=== PATIENT | female | born 1990 | race Hispanic/Latino ===

== ENCOUNTER 2024-09-24 07:25 | Emergency (ER) | payer SELFPAY ==
--- NOTE | 2024-09-24 07:53 | ER ---
Nurse's Notes [facility] Name: Guera Crooks Age: 33 yrs Sex: Female : 1990 Arrival Date: 09/24/2024 Time: 07:25 Bed 4 Private MD: Diagnosis: Uvulitis Presentation: 09/24 07:44 Chief complaint: Patient states: "I feel like there is something stuck in my throat". aa5 Clear strong voice noted, denies pain to throat. 07:44 Coronavirus screen: At this time, the client does not indicate any symptoms associated aa5 with coronavirus-19. Ebola Screen: Patient denies travel to an Ebola-affected area in the 21 days before illness onset. Initial Sepsis Screen: Does the patient meet any 2 criteria? No. Patient's initial sepsis screen is negative. Does the patient have a suspected source of infection? No. Patient's initial sepsis screen is negative. Risk Assessment: Do you want to hurt yourself or someone else? Patient reports no desire to harm self or others. Onset of symptoms was September 24, 2024 at 07:00. 07:44 Acuity: JULIETH 3 aa5 07:44 Method Of Arrival: Ambulatory aa5 Historical: - Allergies: 07:44 No Known Allergies; aa5 - PMHx: 07:44 None; aa5 - PSHx: 07:44 None; aa5 - Immunization history:: Adult Immunizations unknown. - Infectious Disease History:: Denies. - Social history:: Smoking status: Patient denies any tobacco usage or history of. - Family history:: not pertinent. Screenin:54 [facility] ED Fall Risk Assessment (Adult) History of falling in the last 3 months, ko1 including since admission No falls in past 3 months (0 pts) Confusion or Disorientation No (0 pts) Intoxicated or Sedated No (0 pts) Impaired Gait No (0 pts) Mobility Assist Device Used No (0 pt) Altered Elimination No (0 pt) Score/Fall Risk Level 0 - 2 = Low Risk Oriented to surroundings, Maintained a safe environment, Educated pt \\T\\ family on fall prevention, incl call for assistance when getting out of bed, Assessed \\T\\ reinforced patient's understanding of fall precautions, Hourly rounding (assess needs \\T\\ fall precautionary measures) done. Abuse screen: Denies threats or abuse. Denies injuries from another. Nutritional screening: No deficits noted. Tuberculosis screening: No symptoms or risk factors identified. Assessment: 07:44 General: Appears comfortable, Behavior is calm, cooperative. Pain: Denies pain. Neuro: aa5 Level of Consciousness is awake, alert, obeys commands, Oriented to person, place, time, situation. Cardiovascular: Patient's skin is warm and dry. Respiratory: Airway is patent Respiratory effort is even, unlabored, Respiratory pattern is regular, symmetrical. GI: No signs and/or symptoms were reported involving the gastrointestinal system. : No signs and/or symptoms were reported regarding the genitourinary system. EENT: Throat swelling to uvula noted . Derm: Skin is pink, warm \\T\\ dry. Musculoskeletal: Range of motion: intact in all extremities. 08:10 Reassessment: Patient is alert, oriented x 3, equal unlabored respirations, skin aa5 warm/dry/pink. Vital Signs: 07:44 BP 156 / 104; Pulse 107; Resp 18 S; Temp 97.5(TE); Pulse Ox 100% on R/A; Height 5 ft. 1 aa5 in. (R); 07:55 BP 135 / 88; Pulse 84; Resp 15; Pulse Ox 98% ; ko1 ED Course: 07:29 Patient arrived in ED. mg5 07:32 Diallo Coelho MD is Attending Physician. rt 07:44 Ioana Neville, RN is Primary Nurse. aa5 07:44 Arm band placed on. aa5 07:47 Triage completed. aa5 07:54 Patient has correct armband on for positive identification. Bed in low position. Call ko1 light in reach. Provided Education on: meds. Pulse ox on. NIBP on. Door closed. Noise minimized. Lights dimmed. 07:54 No provider procedures requiring assistance completed. Patient did not have IV access ko1 during this emergency room visit. Administered Medications: 08:02 Drug: Dexamethasone IM 10 mg IM once Route: IM; Site: right gluteus; aa5 08:10 Follow up: Response: No adverse reaction aa5 08:02 Drug: Amoxicillin-Clavulanate PO 875 mg PO once Route: PO; aa5 08:10 Follow up: Response: No adverse reaction aa5 Medication: 07:55 VIS not applicable for this client. ko1 Outcome: 07:53 Discharge ordered by . rt 08:10 Discharged to home ambulatory, aa5 08:10 Condition: stable 08:10 Discharge instructions given to patient, Instructed on discharge instructions, follow up and referral plans. medication usage, Demonstrated understanding of instructions, follow-up care, medications, Prescriptions given X 1, 08:11 Patient left the ED. aa5 Signatures: Ioana Neville RN RN aa5 Nataliia Ferrell RN RN ko1 Diallo Coelho MD MD rt Bea Torres mg5
--- NOTE | 2024-09-24 07:53 | EDPHYS ---
Physician Documentation [facility] Name: Guera Crooks Age: 33 yrs Sex: Female : 1990 Arrival Date: 09/24/2024 Time: 07:25 Bed 4 Private MD: ED Physician Diallo Coelho HPI: 09/24 09:10 This 33 yrs old Female presents to ER via Ambulatory with complaints of rt Something Stuck In Throat. 09:10 Patient presents to the ED stating that she believes that her uvula is swollen, rt irritated. States that she did not have any piece of food stuck in her esophagus, denies difficulty swallowing. Denies of acute complaints at this time, symptoms are mild in severity, no other aggravating alleviating factors.. Historical: - Allergies: :44 No Known Allergies; aa5 - PMHx: :44 None; aa5 - PSHx: 07:44 None; aa5 - Immunization history:: Adult Immunizations unknown. - Infectious Disease History:: Denies. - Social history:: Smoking status: Patient denies any tobacco usage or history of. - Family history:: not pertinent. ROS: 09:10 Constitutional: Negative for fever, chills, and weight loss, Cardiovascular: Negative rt for chest pain, palpitations, and edema, Respiratory: Negative for shortness of breath, cough, wheezing, and pleuritic chest pain, Abdomen/GI: Negative for abdominal pain, nausea, vomiting, diarrhea, and constipation, MS/Extremity: Negative for injury and deformity, Skin: Negative for injury, rash, and discoloration, 09:10 ENT: Positive for sore throat, Negative for rhinorrhea, Exam: 09:10 Constitutional: This is a well developed, well nourished patient who is awake, alert, rt and in no acute distress. Head/Face: Normocephalic, atraumatic. Chest/axilla: Normal chest wall appearance and motion. Nontender with no deformity. No lesions are appreciated. Cardiovascular: Regular rate and rhythm with a normal S1 and S2. No gallops, murmurs, or rubs. Normal PMI, no JVD. No pulse deficits. Respiratory: Lungs have equal breath sounds bilaterally, clear to auscultation and percussion. No rales, rhonchi or wheezes noted. No increased work of breathing, no retractions or nasal flaring. Abdomen/GI: Soft, non-tender, with normal bowel sounds. No distension or tympany. No guarding or rebound. No evidence of tenderness throughout. 09:10 ENT: Mild swelling, erythema noted to the uvula, it is midline, no tonsillar hypertrophy, no stridor. Vital Signs: 07:44 BP 156 / 104; Pulse 107; Resp 18 S; Temp 97.5(TE); Pulse Ox 100% on R/A; Height 5 ft. 1 aa5 in. (R); 07:55 BP 135 / 88; Pulse 84; Resp 15; Pulse Ox 98% ; ko1 MDM: 07:45 Medical Screening Exam initiated rt 09:10 Differential Diagnosis Uvulitis, pharyngitis. Data reviewed: vital signs, nurses notes. rt Test considered but Not performed: Other Details Will treat empirically, strep swabs are not needed. No signs for RPA, [employer], CT scans not indicated. Counseling: I had a detailed discussion with the patient and/or guardian regarding the historical points, exam findings, and any diagnostic results supporting the discharge/admit diagnosis, the need for outpatient follow up, to return to the emergency department if symptoms worsen or persist or if there are any questions or concerns that arise at home. Administered Medications: 08:02 Drug: Dexamethasone IM 10 mg IM once Route: IM; Site: right gluteus; aa5 08:10 Follow up: Response: No adverse reaction aa5 08:02 Drug: Amoxicillin-Clavulanate PO 875 mg PO once Route: PO; aa5 08:10 Follow up: Response: No adverse reaction aa5 Disposition Summary: 09/24/24 07:53 Discharge Ordered Notes: Location: Home rt Problem: new rt Symptoms: are unchanged rt Condition: Stable rt Diagnosis - Uvulitis rt Followup: rt - With: Private Physician - When: 2 - 3 days - Reason: Discharge Instructions: - Discharge Summary Sheet rt - Uvulitis rt Forms: - Work release form hb - Medication Reconciliation Form rt - Antibiotic Education rt - Prescription Opioid Use rt - Patient Portal Instructions rt - Leadership Thank You Letter rt Prescriptions: - Augmentin 875-125 mg Oral Tablet - take 1 tablet ORAL route every 12 hours for 10 days; 20 tablet; Refills: 0, rt Product Selection Permitted Signatures: Ioana Neville, RN RN aa5 Diallo Coelho, MD rt
[2024-09-24] MEDS ORDERED: AMOX/K CLAV 875 MG TAB ONE (07:58)
[2024-09-24] MEDS ORDERED: dexAMETHasone 10 MG/ML VIAL ONE (07:58)
[2024-09-24 08:18] VITALS: TEMP 97.5
[2024-09-24 08:19] VITALS: BP 135/88; O2SAT 98
== END 2024-09-24 08:11 | disposition home or self-care (01) ==
LOC: ER 07:25
DX: K12.2 Cellulitis and abscess of mouth (principal)
CPT/HCPCS: 96372; 99284; J1100

== ENCOUNTER 2025-02-12 13:27 | Emergency (ER) | payer SELFPAY ==
--- OUTSIDE RECORDS SUMMARY | 2025-02-12 13:32 | XMS REPORT | Continuity of Care Document ---
Author Name Unknown Address [address] [facility] [address] [place] [address] [facility] Address [address] [facility] [address] [place] [address] Care Team Providers Care Manager Market Intelligence Name Role Phone Adalberto Davila II Attending Clinician Unavailab Jayla Gilman Attending Clinician Unavailable Jayla Stubbs Attending Clinician Unavailable Physician, No Primary or Family Admitting Clinic kim Unavailable Payers Payer Name Policy Type Policy Number Effective Date Expirati on Date Source Allergies, Adverse Reactions, Alerts Allergy Name Allergy Type Status Severity Reaction(s) Onset Date Inactive Date Treating Clinician Comments Source No Known Allergie s DA Active U 06-05 00:00: 00 [facility] are [facility] Encounters Start Date/Time End Date/Time Encounter Type Admission Type Attending Clinicians Care Facility Care Department Encounter ID Source 2023-06-05 19:40:00 2023-06-06 00:40:00 Emergency EM Adalberto Davila II HCANW [place] [id number] [facility] are [facility] 2018-05-04 14:24:00 2018-05-04 23:59:00 Outpatient 3 Jayla Stubbs [facility] ULT [id number] Health system Results Test Description Test Time Test Comments Results Resul t Comments Source - US PREG 1ST TRIMTR 2023-06-09 06:39:00 [facility] 1990 Sex: F *Patient Name: LIZETH TENA Unit No: [id number] EXAMS: CPT: [id number] US PREG 1ST TRIMTR 21815 Obstetrical sonogram, 06/05/2023. Clinical: Vaginal bleeding. Comment: Transabdominal and endovaginal examinations were performed. The uterus measures 12.3 x 5.9 x 7.3 cm. The endometrium measures 1.1 cm. No IUP is identified. There are nabothian cysts. The right ovary measures 4.2 x 3.4 x 3.7 cm. The left ovary measures 2.3 x 1.4 x 2.3 cm. No adnexal masses are present. There is no evidence of ovarian torsion. IMPRESSION: No IUP identified. at 0639 Reported and signed by: Av Rush MD CC: Adalberto Davila II, Jr, MD Technologist: VERN Valles Probe: Trscr Dt/Tm: 06/09/2023 (0639) by:[email or web address] Orig Print D/T: S: 06/09/2023 (0643) BATCH NO: N/A Name: LIZETH TENA [facility] Phys: MALED. - Adalberto Davila II [facility] 1990 Age: 32 Sex: F [place], [place] [address] Loc: N.ERS Exam Date: 06/05/2023 Status: DEP ER PH: FAX: PAGE 1 Signed Report - US PREG UT TRANSVAGINAL 2023-06-09 06:39:00 [facility] : 1990 Sex: F *Patient Name: LIZETH TENA Unit No: [id number] EXAMS: CPT: [id number] US PREG UT TRANSVAGINAL 39515 Obstetrical sonogram, 06/05/2023. Clinical: Vaginal bleeding. Comment: Transabdominal and endovaginal examinations were performed. The uterus measures 12.3 x 5.9 x 7.3 cm. The endometrium measures 1.1 cm. No IUP is identified. There are nabothian cysts. The right ovary measures 4.2 x 3.4 x 3.7 cm. The left ovary measures 2.3 x 1.4 x 2.3 cm. No adnexal masses are present. There is no evidence of ovarian torsion. IMPRESSION: No IUP identified. at 0639 Reported and signed by: Av Rush MD CC: Adalberto Davila II, Jr, MD Technologist: VERN Valles Probe: [id number] Trscr Dt/Tm: 06/09/2023 (0639) by:[email or web address] Orig Print D/T: S: 06/09/2023 (0643) BATCH NO: N/A Name: LIZETH TENA [facility] Phys: MALED. - Adalberto Davila II [address] [place] : 1990 Age: 32 Sex: F [place], [place] [address] Loc: N.ERS Exam Date: 06/05/2023 Status: DEP ER PH: FAX: PAGE 1 Signed Report - US PREG UT TRANSVAGINAL 2023-06-06 06:52:00 [facility] : 1990 Sex: F *Patient Name: LIZETH TENA Unit No: [id number] EXAMS: CPT: [id number] US PREG UT TRANSVAGINAL 66435 Obstetrical sonogram, 06/05/2023. Clinical: Vaginal bleeding. Comment: Transabdominal and endovaginal examinations were performed. The uterus measures 12.3 x 5.9 x 7.3 cm. The endometrium measures 1.1 cm. No IUP is identified. There are nabothian cysts. The right ovary measures 4.2 x 3.4 x 3.7 cm. The left ovary measures 2.3 x 1.4 x 2.3 cm. No adnexal masses are present. There is no evidence of ovarian torsion. IMPRESSION: No IUP identified. at 0652 Reported and signed by: Av Rush MD CC: Adalberto Davila II, Jr, MD Technologist: VERN Valles Probe: [id number] Trs Dt/Tm: 06/06/2023 (0652) by:[email or web address] Orig Print D/T: S: 06/06/2023 (0655) BATCH NO: N/A Name: LIZETH TENA [facility] Phys: MALED. - Adalberto Davila II [address] [place] : 1990 Age: 32 Sex: F [place], [place] [address] Loc: N.ERS Exam Date: 06/05/2023 Status: DEP ER PH: FAX: PAGE 1 Signed Report - US PREG 1ST TRIMTR 2023-06-05 23:14:00 [facility] : 1990 Sex: F *Patient Name: LIZETH TENA Unit No: [id number] EXAMS: CPT: [id number] US PREG 1ST TRIMTR 64214 EXAMINATION: PELVIC OB ULTRASOUND HISTORY: Pelvic Pain TECHNIQUE: Real-time grayscale ultrasound imaging of the pelvis utilizing transvaginal and transabdominal technique. COMPARISON:None FINDINGS: The uterus measures 12.3 x 5.9 x 7.3 cm. The endometrial stripe measures 1.1 cm. Multiple small nabothian cysts in the cervix. The right ovary measures 4.2 x 3.4 x 3.7 cm. The left ovary measures 2.2 x 1.4 x 2.3 cm. There is no adnexal mass or free fluid. There is normal ovarian flow. No uterine fibroid of mass. IMPRESSION: No intrauterine is identified. The differential diagnosis for empty uterus in setting of early is early , failed , and ectopic . Recommend correlation with close clinical followup, serial hCG, and followup ultrasound, as clinically indicated.. at 8114 Reported and signed by: Shirlene García MD CC: Jeny Arita Technologist: VERN Valles Probe: Trscr Dt/Tm: 06/05/2023 (8514) by:[email or web address] Orig Print D/T: S: 06/05/2023 (2317) BATCH NO: N/A Name: LIZETH TENA [facility] Phys: BERTO AritaJeny : 1990 Age: 32 Sex: F [place], [place] [address] Loc: N.ERS Exam Date: 06/05/2023 Status: REG ER PH: FAX: PAGE 1 Signed Report BASIC METABOLIC [id number] 22:30:00* Test Item Value Reference Range Interpretation Comme nts SODIUM (test code = NA) 138 mmol/L 135-145 N POTASSIUM (test code = K) 3.2 mmol/L 3.6-5.0 L CHLORIDE (test code = CL) 104 mmol/L 101-111 N CARBON DIOXIDE (test code = CO2) 24 mmol/L 21-31 N GLUCOSE (test code = GLU) 122 mg/dl 70-100 H BLOOD UREA NITROGEN (test code = BUN) 11 mg/dl 6-20 N GLOMERULAR FILTRATION RATE (test code = GFR) >=60 max estimate >60 The Glomerular Filtration Rate is a calculated parameterbased on serum Creatinine, patient age and sex. GFR valuesless than 60 mL/min/1.73 square meters are indicative ofChronic Kidney Disease. Values less than 15 mL/min/1.73square meters indicate Kidney failure. The calculation forGFR is based on the CKD-EPI (202) calculation. This formulais race indifferent and is the recommended formula for GFRby the National Kidney Foundation for Adults.The GFR will not calculate if the sex is unknown or if thepatient's age is <18 years. CREATININE (test code = CREAT) 0.61 mg/dL 0.44-1.03 N CALCIUM (test code = CA) 9.4 mg/dL 8.5-10.5 N INDEX HEMOLYSIS (test code = HEMINDEX) 0 Index/DL See_Comment [Automated messa ge] The system which generated this result transmitted reference range: 1 NORMAL. The reference range was not used to interpret this result as normal/abnormal. INDEX ICTERIC (test code = ICTINDEX) 1 Index/DL See_Comment [Automated messa ge] The system which generated this result transmitted reference range: 1 NORMAL. The reference range was not used to interpret this result as normal/abnormal. INDEX LIPEMIA (test code = LIPINDEX) 1 Index/DL See_Comment [Automated WhoGotStuffa ge] The system which generated this result transmitted reference range: 1 NORMAL. The reference range was not used to interpret this result as normal/abnormal. CBC W/AUTO [id number] 22:26:00* Test Item Value Reference Range Interpretation Comme nts WHITE BLOOD CELL (test code = WBC) 9.0 x10 3/uL 3.2-11.5 N RED BLOOD CELL (test code = RBC) 4.02 x10(6)/m 3.70-5.10 N HEMOGLOBIN (test code = HGB) 9.1 g/dL 12.0-15.0 L HEMATOCRIT (test code = HCT) 30.7 % 35.7-44.8 L MEAN CELL VOLUME (test code = MCV) 76 fL 80-100 L MEAN CELL HGB (test code = MCH) 22.6 pg 26.2-33.8 L MEAN CELL HGB CONCENTRATION (test code = MCHC) 29.6 g/dL 30.0-34.0 L RED CELL DISTRIBUTION WIDTH (test code = RDW) 17.4 % 11.3-14.5 H PLATELET COUNT (test code = PLT) 455 x10 3/uL 130-408 H MEAN PLATELET VOLUME (test c ode = MPV) 9.6 fL 8.6-12.6 N NEUTROPHIL % (test code = NT%) 63.3 % 40.0-70.0 N LYMPHOCYTE % (test code = LY%) 26.9 % 20-40 N MONOCYTE % (test code = MO%) 6.8 % 1-10 N EOSINOPHIL % (test code = EO%) 1.8 % 0.0-5.0 N BASOPHIL % (test code = BA%) 0.8 % 0.0-1.0 N NUCLEATED RBC % (test code = NRBC%) 0.0 % 0.0-0.9 N NEUTROPHIL # (test code = NT#) 5.7 x10 3/uL 1.6-7.2 N LYMPHOCYTE # (test code = LY#) 2.42 x10 3/uL 1.1-2.7 N MONOCYTE # (test code = MO#) 0.6 x10 3/uL 0.3-0.8 N EOSINOPHIL # (test code = EO#) 0.2 x10 3/uL 0.0-0.5 N IMMATURE GRANULOCYTE % (test code = IG%) 0.4 % 0.0-2.0 N BASOPHIL # (test code = BA#) 0.1 x10 3/uL 0.0-0.1 N UR HCG [id number] 22:17:00* Test Item Value Reference Range Interpretation Comme nts UR HCG QUAL (test code = HCGQLU) POSITIVE NEGATIVE Notes Date/Time Note Provider Source 2023-06-06 00:20:00 [facility] ([facility] EMERGENCY PROVIDER REPORT REPORT#:[id number] REPORT STATUS: Signed DATE:06/06/23 TIME: 19 PATIENT: LIZETH TENA UNIT #: [id number] ROOM: BED: AGE: 32 SEX: F PCP PHYS: No Primary or Family Physician SERVICE AUTHOR: Luzma Michel * ALL edits or amendments must be made on the electronic/computer document * Luzma Michel 06/06/23 0020: HPI- Female Free Text HPI Notes Free Text HPI Notes 32-year-old female presents to the ER chief complaint of vaginal bleeding and pelvic cramps. LMP was the middle of March. She missed her cycle in April. Current bleeding started on 05/28/2023. Describes the bleeding as minimal spotting only noticeable when wiping. Pelvic cramps are generalized, 3/10, nonradiating, no modifying factors. She was evaluated at an outpatient clinic today where she was notified of a positive test and advised to come to the ER for further evaluation. G6, P5. General Confirmed Patient Yes Patient Type New patient Initial Greet Date/Time 06/05/23 194 Provider in Triage HPI Chief Complaint VAGINAL BLEEDING, POSITIVE TEST PE General/Const No acute distress Presentation Chief Complaint Pelvic pain, Vaginal bleeding )( Sudden in Onset? No Associated Other Pt denies other symptoms Risk- Female Risk Stratification Ectopic Risk factors reviewed Review of Systems ROS Statements All systems rev neg except as marked. Past Medical History - Adult Stated Complaint VAGINAL BLEED Allergies Coded Allergies: No Known Allergies (06/05/23) Smoking status for patients 13 years old or older: Unknown,if ever smoked Physical Exam Vital Signs Vital Signs First Documented: Result Date Time Resp 06/05 Pulse Ox 99 06/05 1944 B/P 159/109 06/05 1944 B/P Mean 126.0 06/05 1944 Temp 37.0 06/05 1944 Pulse 104 06/05 1944 Last Documented: Result Date Time Pulse Ox 99 06/06 39 B/P 146/82 06/06 39 B/P Mean 103 06/06 39 Pulse 87 06/06 39 Resp 18 06/06 39 Temp 37.0 06/05 1944 Review of Vital Signs Reviewed, Vital signs normal Focused PE Genitourinary General Exam deferred Free Text PE Notes Free Text PE Notes General: Well-appearing, well-nourished no apparent distress Head: Normocephalic atraumatic Eyes: EOMI, PERRLA, normal conjunctiva, no scleral icterus, HEENT: Airway patent, mucous membranes moist, pharynx normal. Respiratory/chest: Breath sounds normal, breath sounds equal bilaterally, no respiratory distress, no rales, no rhonchi, no wheezing Cardiovascular: Heart rate normal, regular rhythm, heart sounds normal, peripheral circulation normal Abdomen/GI: Soft, no guarding, no rebound, no distention, no hernia, no palpable mass, no pulsatile mass MS back: Normal inspection, non-tender, no costovertebral angle tenderness. Skin: Color normal, warm, dry, normal turgor. Extremities: No edema, full range of motion, neurovascularly intact. Neuro: Alert and oriented x3, no cerebellar signs. GCS 15 Psych: Normal affect, normal mood, normal concentration, normal insight Interpretation Diagnostics Lab Results Interpretation Results Laboratory Tests 06/05/232155: [Embedded Image Not Available] Laboratory Tests: 06/05 Chemistry Sodium (135 - 145 mmol/L) 138 Potassium (3.6 - 5.0 mmol/L) 3.2 L Chloride (101 - 111 mmol/L) 104 Carbon Dioxide (21 - 31 mmol/L) 24 BUN (6 - 20 mg/dl) 11 Creatinine (0.44 - 1.03 mg/dL) 0.61 Glomerular Filtr Rate (>60) >=60 max estimate Glucose (70 - 100 mg/dl) 122 H Calcium (8.5 - 10.5 mg/dL) 9.4 HCG, Quant (mIU/ml) 91.9 Specimen Appearance (1 NORMAL Index/DL) 1 Specimen Hemolysis (1 NORMAL Index/DL) 0 Hematology WBC (3.2 - 11.5 x10 3/uL) 9.0 RBC (3.70 - 5.10 x10(6)/m) 4.02 Hgb (12.0 - 15.0 g/dL) 9.1 L Hct (35.7 - 44.8 %) 30.7 L MCV (80 - 100 fL) 76 L MCH (26.2 - 33.8 pg) 22.6 L MCHC (30.0 - 34.0 g/dL) 29.6 L RDW (11.3 - 14.5 %) 17.4 H Plt Count (130 - 408 x10 3/uL) 455 H MPV (8.6 - 12.6 fL) 9.6 Neut % (Auto) (40.0 - 70.0 %) 63.3 Lymph % (Auto) (20 - 40 %) 26.9 [place] % (Auto) (1 - 10 %) 6.8 Eos % (Auto) (0.0 - 5.0 %) 1.8 Baso % (Auto) (0.0 - 1.0 %) 0.8 Neut # (Auto) (1.6 - 7.2 x10 3/uL) 5.7 Lymph # (Auto) (1.1 - 2.7 x10 3/uL) 2.42 [place] # (Auto) (0.3 - 0.8 x10 3/uL) 0.6 Eos # (Auto) (0.0 - 0.5 x10 3/uL) 0.2 Baso # (Auto) (0.0 - 0.1 x10 3/uL) 0.1 Immature Gran % (0.0 - 2.0 %) 0.4 Nucleated RBC % (0.0 - 0.9 %) 0.0 Urines Urine HCG, Qual (NEGATIVE) POSITIVE Recent Impressions: ULTRASOUND - US PREG UT TRANSVAGINAL 06/054 Report Impression - Status: SIGNED Entered: 06/06/2023 7855 IMPRESSION: No IUP identified. Impression By: [email or web address] - Av Rush MD ULTRASOUND - US PREG 1ST TRIMTR 06/05 2225 Report Impression - Status: SIGNED Entered: 06/05/2023 2317 IMPRESSION: No intrauterine is identified. The differential diagnosis for empty uterus in setting of early is early , failed , and ectopic . Recommend correlation with close clinical followup, serial hCG, and followup ultrasound, as clinically indicated.. Impression By: [email or web address] - Shirlene García MD Re-Evaluation [facility] ED Course Medication(s) Ordered Medication(s) Ordered: Electrolytic, Caloric, And Franchesca Sig/Haris Start time Last Medication Dose Route Stop Time Status Admin Sodium Chloride 1,000 ML X1ED STA 06/05 1947 DC 06/05 IV 06/05 Differential Diagnosis Differential Diagnosis , spontaneous, Discomfort of , Dysfunct uterine bleeding, Dysmenorrhea, Ectopic , Urinary tract infection Free Text MDM Notes Free Text MDM Notes Patient presents with vaginal bleeding and pelvic pain for the past 10 days. test positive, however her hCG is very low with no IUP on her ultrasound. Findings most likely due to spontaneous miscarriage. Advised patient to follow-up with [facility] for repeat hCG levels in 2-3 days. If pain or bleeding worsen return to the ER for reevaluation. Patient Discharge Departure Vital Signs/Condition Vital Signs First Documented: Result Date Time Resp 19 06/05 1941 Pulse Ox 99 06/05 1944 B/P 159/109 06/05 1944 B/P Mean 126.0 06/05 1944 Temp 37.0 06/05 1944 Pulse 104 06/05 1944 Last Documented: Result Date Time Pulse Ox 99 06/069 B/P 146/82 06/06 39 B/P Mean 103 06/06 39 Pulse 87 06/06 39 Resp 18 06/06 39 Temp 37.0 06/05 1944 All vital signs available at the time of this entry have been reviewed. Condition Stable Clinical Impression Clinical Impression Primary Impression: Spontaneous Secondary Impressions: Early stage of Disposition Decision Discharge )( Discharged to Home Yes )( Time 0020 )( Date 06/06/23 Discharge/Care Plan Counseled Regarding Diagnosis Patient Instructions ED Miscarriage Spontaneous, ED Discharge Note I have spoken with the patient and/or caregivers. I have explained the patient's condition, diagnoses and treatment plan based on the information available to me at this time. I have answered the patient's and/or caregiver's questions and addressed any concerns. The patient and/or caregivers have as good an understanding of the patient's diagnosis, condition and treatment plan as can be expected at this point. The vital signs have been stable. The patient's condition is stable and appropriate for discharge from the emergency department. The patient will pursue further outpatient evaluation with the primary care physician or other designated or consulting physician as outlined in the discharge instructions. The patient and/or caregivers are agreeable to this plan of care and follow-up instructions have been explained in detail. The patient and/or caregivers have received these instructions in written format and have expressed an understanding of the discharge instructions. The patient and/or caregivers are aware that any significant change in condition or worsening of symptoms should prompt an immediate return to this or the closest emergency department or a call to 911. Adalberto Davila ii 06/06/23 4444: Patient Discharge Departure Discharge/Care Plan Referrals Provider Referral: Wiliam Piper MD Address: [address] [place] [address] Supervising Physician Note MidLv Saw Pt Alone I have reviewed the PA/AIR MARSHAL's note and plan of care. I was available for consultation as needed at all times during the patient's visit in the emergency department. I agree with the clinical impression, plan and disposition. at 0239 at 5448 RPT #:[id number] END OF REPORT [facility] 2023-06-05 19:46:00 [facility] ([facility]) EMERGENCY PROVIDER REPORT REPORT#:[id number] REPORT STATUS: Signed DATE:06/05/23 TIME: 1945 PATIENT: LIZETH LOJA UNIT #: [id number] ROOM: BED: AGE: 32 SEX: F PCP PHYS: SERVICE DT: AUTHOR: Jeny Arita * ALL edits or amendments must be made on the electronic/computer document * Provider in Triage - Adult Provider in Triage Initial Greet Date/Time 07/21/23 1940 Greet Note I have greeted and performed a focused rapid initial assessment of this patient. A comprehensive ED assessment and evaluation of the patient, analysis of all test results, and completion of the medical decision-making process will be conducted by additional ED providers. HPI Chief Complaint VAGINAL BLEEDING, POSITIVE TEST PE General/Const No acute distress Free Text PIT Notes Free Text PIT Notes Patient reports starting her period on May 28 and is currently still on what appears to be normal menses. Patient reports cramping. Patient was seen at outside clinic and has positive urine test. This patient was seen and evaluated in triage, further evaluation is needed PMH-Provider in Triage Stated Complaint VAGINAL BLEED Allergies Coded Allergies: No Known Allergies (06/05/23) Smoking status: Smoking status for patients 13 years old or older: Unknown,if ever smoked at 1949 at 2004 RPT #:[id number] END OF REPORT HCANW
[2025-02-12 14:07] LABS: Absolute Basophils 0.1 K/uL (0-0.5); Absolute Monocytes 0.5 K/uL (0.1-1.3); Absolute Neutrophil 8.3 K/uL (1.8-8.0); Basophils % 0.8 % (0-1.3); Eosinophils % 0.2 % (0-4.4); Hematocrit 18.9 % (36.0-45.0); Hemoglobin 6.5 g/dL (12.0-15.0); Lymphocytes % 18.3 % (15.3-44.8); MCH 29.3 pg (27.0-35.0); MCHC 34.4 g/dL (32.0-36.0); MCV 85.3 fL (80-100); MPV 8.1 fL (7.6-11.3); Monocytes % 4.4 % (3.3-12.3); Neutrophils % 76.3 % (41.7-73.7); Nucleated Red Blood Cells % 0.1 % (0-0); Platelets 259 thou/uL (152-406); RBC Red Blood Cell Count 2.22 M/uL (3.86-4.86); Red Cell Distribution Width 14.2 % (12.1-15.2)
[2025-02-12] MEDS ORDERED: NA CHLORIDE 0.9% 250 ML ONE ×3 (14:16→18:24)
[2025-02-12 14:18] LABS: Anion Gap 9.3 mEq/L (5.0-15.0); Potassium 3.3 mEq/L (3.5-5.1)
[2025-02-12] MEDS ORDERED: NA CHLORIDE 0.9% 1,000 ML ONE (14:23)
--- NOTE | 2025-02-12 15:01 | RAD REPORT ---
Transvaginal Study Probe, Pelvis Complete CLINICAL INDICATION: Female 34 years old VAGINAL BLEEDING TECHNIQUE: Real-time ultrasonography of the pelvis was performed transvaginally and transabdominally. Color and spectral Doppler evaluation of the ovaries was performed. [id number]. COMPARISON: No prior exam. FINDINGS: UTERUS AND CERVIX: The uterus measures 10.9 x 5.4 x 6.7 cm (cervix to fundus x AP x transverse). The uterus is normal. No masses seen . The endometrium is normal,11 mm thickness. RIGHT OVARY: 4 cm simple appearing right ovarian cyst. The right ovary measures 4 x 3.1 x 3.6 cm with volume of 23 mL. Normal color and spectral Doppler evaluation of the right ovary.. LEFT OVARY: Normal The left ovary measures 2.6 x 2.5 x 2.2 cm with volume of 7.4 mL. Normal Color a nd spectral Doppler evaluation of the left ovary.. FREE FLUID: No free fluid. IMPRESSION: 1. No acute findings. Simple 4 cm right ovarian cyst. No follow-up required. 2. Bilateral ovarian blood flow.
[2025-02-12] MEDS ORDERED: TRANEXAMIC ACID 1,000 MG/10 ML VIAL IV ONE (15:26)
--- NOTE | 2025-02-12 17:44 | RAD REPORT ---
EXAMINATION: Pelvis W/Cont CLINICAL INDICATION: Female, 34 years old. VAGINAL BLEEDING TECHNIQUE: CT pelvis was performed, with IV contrast, as per department protocol. Axial, sagittal and coronal reconstructions were obtained. One or more of the following dose reduction techniques were used: Automated exposure control, adjustment of the mA and/or kV according to patient size, and/or it erative reconstruction. Unless otherwise specified, incidental findings do not require dedicated imaging follow-up. LV1430. IV CONTRAST: Yes COMPARISON: No prior exam. FINDINGS: SMALL BOWEL/COLON: Small bowel has normal course and caliber. No colonic wall thickening or pericolon ic inflammatory changes.Normal appendix. LYMPH NODES: No lymphadenopathy. ABDOMINAL AORTA AND OTHER VESSELS: Normal caliber aorta and IVC. PERITONEUM: No abnormal free fluid. No free air. ABDOMINAL WALL: Fat-containing umbilical hernia REPRODUCTIVE ORGANS: Right adnexal cyst as seen on ultrasound measuring 3.2 cm. No follow-up required . There is likely some fluid at the vagina. URINARY BLADDER: Underdistended but grossly unremarkable. MUSCULOSKELETAL: No acute or suspicious osseous abnormality. ADDITIONAL FINDINGS: None. IMPRESSION: No acute findings in the pelvis. Question some fluid in the vagina which is nonspecific.
--- NOTE | 2025-02-12 17:50 | ER ---
Nurse's Notes [facility] Name: Guera Crooks Age: 34 yrs Sex: Female : 1990 Arrival Date: 02/12/2025 Time: 13:27 Bed 17 Private MD: Diagnosis: Abnormal uterine and vaginal bleeding, unspecified;Anemia, unspecified;Tachycardia, unspecified Presentation: 02/12 13:41 Chief complaint: Vaginal bleeding x 5 days, became very heavy with large clots 3 days hb ago. Coronavirus screen: At this time, the client does not indicate any symptoms associated with coronavirus-19. Ebola Screen: No symptoms or risks identified at this time. Initial Sepsis Screen: Does the patient meet any 2 criteria? No. Patient's initial sepsis screen is negative. Does the patient have a suspected source of infection? No. Patient's initial sepsis screen is negative. Risk Assessment: Do you want to hurt yourself or someone else? Patient reports no desire to harm self or others. Onset of symptoms was February 08, 2025. 13:41 Method Of Arrival: Ambulatory hb 13:41 Acuity: JULIETH 2 hb DIRECTOR OF IN SERVICE EDUCATION: 20:21 Not cp4 Historical: - Allergies: 13:42 No Known Allergies; hb - Home Meds: 13:42 None [Active]; hb - PMHx: 13:42 None; hb - PSHx: 13:42 None; hb - Immunization history:: Adult Immunizations up to date. - Infectious Disease History:: Denies. - Social history:: Smoking status: Patient denies any tobacco usage or history of. Screenin:47 [facility] ED Fall Risk Assessment (Adult) History of falling in the last 3 months, ld1 including since admission No falls in past 3 months (0 pts) Confusion or Disorientation No (0 pts) Intoxicated or Sedated No (0 pts) Impaired Gait No (0 pts) Mobility Assist Device Used No (0 pt) Altered Elimination No (0 pt) Score/Fall Risk Level 0 - 2 = Low Risk Oriented to surroundings, Hourly rounding (assess needs \T\ fall precautionary measures) done. Abuse screen: Denies threats or abuse. Denies injuries from another. Nutritional screening: No deficits noted. Tuberculosis screening: No symptoms or risk factors identified. Assessment: 13:47 General: Appears in no apparent distress. comfortable, Behavior is calm, cooperative, ld1 appropriate for age. Pain: Denies pain. Neuro: Level of Consciousness is awake, alert, obeys commands, Oriented to person, place, time, situation. Cardiovascular: Capillary refill < 3 seconds Patient's skin is warm and dry. Rhythm is sinus tachycardia. Respiratory: Airway is patent Respiratory effort is even, unlabored. GI: Abdomen is round non-distended. : Urine is blood tinged, Reports vaginal bleeding that is with clots, heavy flow. EENT: No signs and/or symptoms were reported regarding the EENT system. Derm: No signs and/or symptoms reported regarding the dermatologic system. Musculoskeletal: No signs and/or symptoms reported regarding the musculoskeletal system. 15:00 Reassessment: Patient appears in no apparent distress at this time. No changes from ld1 previously documented assessment. 16:30 Reassessment: Patient appears in no apparent distress at this time. No changes from ld1 previously documented assessment. Patient and/or family updated on plan of care and expected duration. Pain level reassessed. Pt reports blood clots coming out while going to bathroom. Assisted PA with pelvic exam. Patient states symptoms have not improved. 17:50 Reassessment: Patient appears in no apparent distress at this time. No changes from ld1 previously documented assessment. Patient denies pain at this time. 18:56 Reassessment: Patient appears in no apparent distress at this time. No changes from ld1 previously documented assessment. Patient and/or family updated on plan of care and expected duration. Pain level reassessed. 2nd unit PRBC infusing now. Vital Signs: 13:41 BP 138 / 83; Pulse 133; Resp 18; Temp 99(O); Pulse Ox 100% on R/A; Weight 65.77 kg; hb Height 5 ft. 1 in. ; Pain 0/10; 13:47 BP 138 / 67; Pulse 132; Resp 18; Pulse Ox 100% on R/A; Pain 0/10; ld1 14:30 BP 105 / 89; Pulse 129; Resp 18; Pulse Ox 100% on R/A; ld1 15:32 BP 133 / 66; Pulse 122; Resp 18; Pulse Ox 100% on R/A; ld1 16:55 BP 109 / 57; Pulse 103; Resp 18; Pulse Ox 100% on R/A; ld1 17:05 BP 108 / 44; Pulse 103; Resp 18; Pulse Ox 100% on R/A; ld1 18:35 BP 115 / 69; Pulse 105; Resp 18; Pulse Ox 99% on R/A; ld1 18:45 BP 108 / 91; Pulse 109; Resp 18; Pulse Ox 100% on R/A; ld1 20:20 BP 111 / 58; Pulse 100; Resp 18; Temp 97.7; Pulse Ox 100% ; cp4 13:41 Body Mass Index 27.40 (65.77 kg, 154.94 cm) hb 13:41 Pain Scale: Adult hb 13:47 Pain Scale: Adult ld1 ED Course: 13:31 Patient arrived in ED. al6 13:32 Jeimy Nice PA-C is PHCP. sb4 13:32 Thanh Lees MD is Attending Physician. sb4 13:41 Connie Keita, PASCALE is Primary Nurse. ld1 13:42 Triage completed. hb 13:42 Arm band placed on. hb 13:47 Patient has correct armband on for positive identification. Placed in gown. Bed in low ld1 position. Call light in reach. Side rails up X2. Pulse ox on. NIBP on. Door closed. Noise minimized. Warm blanket given. 13:47 No provider procedures requiring assistance completed. ld1 13:59 Inserted saline lock: 20 gauge in right antecubital area, using aseptic technique. am7 Blood collected. Flushed with 10 mL NS. 13:59 Type And Screen Sent. am7 14:56 Transvaginal Study (probe) In Process Unspecified. EDMS 14:56 Pelvis Complete In Process Unspecified. EDMS 15:46 Inserted saline lock: 20 gauge in left antecubital area, using aseptic technique. am7 Flushed with 10 mL NS. 15:57 Radiology exam delayed due to test not completed at this time. mw3 17:36 Pelvis W/Cont CT In Process Unspecified. EDMS 17:58 called [facility] to start transfer. Talked to Iris. sp 18:58 [facility] accepted pt. sp 20:20 Provided Education on: Blood Transfusion. cp4 20:20 Patient transferred, IV remains in place. cp4 02/13 00:10 PT WAS ACCEPTED TO [facility]. ACCEPTING DR. WITT \T\ 1847. ADMIN APPROVAL GIVEN kmf BY JAMEEL MOHAN \T\193. NUMBER FOR NURSE TO NURSE REPORT [phone]. [facility] TO TRANSFER PT. Administered Medications: 02/12 14:28 Drug: NS 0.9% IV 1000 ml IV at 1 bolus Per protocol; to be given as a bolus over 60 ld1 minutes Route: IV; Rate: 1 bolus; Site: right antecubital; 18:58 Follow up: Response: No adverse reaction; IV Status: Completed infusion; IV Intake: ld1 1000ml 15:32 Drug: tranexamic acid IV 1000 mg IV at calculated rate once; administer at a rate not ld1 to exceed 100 mg per min Route: IV; Rate: calculated rate; Site: right antecubital; 18:58 Follow up: Response: No adverse reaction; IV Status: Completed infusion; IV Intake: ld1 250ml Medication: 13:47 VIS not applicable for this client. ld1 Intake: 18:58 IV: 250ml; Total: 250ml. ld1 18:58 IV: 1000ml; Total: 1250ml. ld1 Outcome: 17:50 ER care complete, transfer ordered by . sb4 20:20 Transferred by ground EMS to [facility], Transfer form completed. cp4 X-rays sent w/ patient. 20:20 Condition: stable 20:20 Instructed on the need for transfer, 20:23 Patient left the ED. cp4 Signatures: Dispatcher [employer] EDMS Patty Ram Heather, RN RN Connie Vee mw3 Connie Keita RN RN ld1 Jeimy Nice, PA-C PA-C sb4 Arianne Will cp4 Yudi Martinez [facility] Jazmín Arellano am7 Suzanne Montes6
--- NOTE | 2025-02-12 17:50 | EDPHYS ---
Physician Documentation [facility] Name: Guera Crooks Age: 34 yrs Sex: Female : 1990 Arrival Date: 02/12/2025 Time: 13:27 Bed 17 Private MD: ED Physician Thanh Lees HPI: 02/12 14:34 This 34 yrs old Female presents to ER via Ambulatory with complaints of sb4 Vaginal Bleeding, Dizziness. 14:34 Patient states that she started her menstrual cycle about 4 days ago but has been sb4 extremely heavy compared to her normal cycles. States that she is having to change her tampon every hour and is passing clots. States that she is feeling dizzy, weak, short of breath. States that she typically has a normal menstrual cycle every month. She is on OCPs that she reports compliance with. Denies any history of anemia. ASSOCIATE MERCHANT: 20:21 Not cp4 Historical: - Allergies: 13:42 No Known Allergies; hb - Home Meds: 13:42 None [Active]; hb - PMHx: 13:42 None; hb - PSHx: 13:42 None; hb - Immunization history:: Adult Immunizations up to date. - Infectious Disease History:: Denies. - Social history:: Smoking status: Patient denies any tobacco usage or history of. ROS: 14:34 Positive for vaginal bleeding, menstrual abnormality, sb4 14:34 Constitutional: Negative for fever, chills, and weight loss, 14:34 Respiratory: Positive for dyspnea on exertion, 14:34 Neuro: Positive for dizziness, weakness, Exam: 14:34 Head/Face: Normocephalic, atraumatic. Eyes: Extra-ocular motions intact. Periorbital sb4 areas with no swelling, redness, or edema. ENT: Mucous membranes moist. Respiratory: No increased work of breathing, no retractions or nasal flaring. Abdomen/GI: Soft, non-tender, no distension. Skin: Warm, dry with normal turgor. Normal color with no rashes, no lesions, and no evidence of cellulitis. 14:34 Constitutional: The patient appears in no acute distress, alert, awake, pale, 14:34 Cardiovascular: Rate: tachycardic, Rhythm: regular, 15:54 : Pelvic Exam: External exam: is normal, Speculum exam: moderate bleeding, blood sb4 clots in vaginal vault, no cervicitis, no tissue in cervix is seen, no tissue in vagina is seen, the nurse was present for the exam, Vital Signs: 13:41 BP 138 / 83; Pulse 133; Resp 18; Temp 99(O); Pulse Ox 100% on R/A; Weight 65.77 kg; hb Height 5 ft. 1 in. ; Pain 0/10; 13:47 BP 138 / 67; Pulse 132; Resp 18; Pulse Ox 100% on R/A; Pain 0/10; ld1 14:30 BP 105 / 89; Pulse 129; Resp 18; Pulse Ox 100% on R/A; ld1 15:32 BP 133 / 66; Pulse 122; Resp 18; Pulse Ox 100% on R/A; ld1 16:55 BP 109 / 57; Pulse 103; Resp 18; Pulse Ox 100% on R/A; ld1 17:05 BP 108 / 44; Pulse 103; Resp 18; Pulse Ox 100% on R/A; ld1 18:35 BP 115 / 69; Pulse 105; Resp 18; Pulse Ox 99% on R/A; ld1 18:45 BP 108 / 91; Pulse 109; Resp 18; Pulse Ox 100% on R/A; ld1 20:20 BP 111 / 58; Pulse 100; Resp 18; Temp 97.7; Pulse Ox 100% ; cp4 13:41 Body Mass Index 27.40 (65.77 kg, 154.94 cm) hb 13:41 Pain Scale: Adult hb 13:47 Pain Scale: Adult ld1 MDM: 13:33 Medical Screening Exam initiated sb4 17:24 Differential diagnosis: dysmenorrhea, ectopic , endometriosis, malignancy, sb4 uterine cancer menometrorrhagia, menorrhea, Neoplasm postcoital bleeding, uterine fibroids, urinary tract infection. Awaiting: CT scan results. 17:50 Data reviewed: vital signs, nurses notes, lab test result(s), radiologic studies, I sb4 have discussed the patient's presentation/case with the attending Emergency Department Physician;. Counseling: I had a detailed discussion with the patient and/or guardian regarding the historical points, exam findings, and any diagnostic results supporting the discharge/admit diagnosis, lab results, radiology results, the need to transfer to another facility, [facility] does not immediately have the required specialist. ED course: Patient remains tachycardic and is still experiencing heavy vaginal bleeding after 1 unit of blood, 1 L of fluid, and 1 g of TXA. Will transfer for gynecologic services. 18:32 Transition of care: After a detail discussion of the patient's case, care is sb4 transferred to Lester OBANDO 02/12 13:39 Order name: Type And Screen sb4 02/12 13:39 Order name: Basic Metabolic Panel; Complete Time: 14:19 sb4 02/12 13:39 Order name: CBC with Diff; Complete Time: 14:07 sb4 02/12 14:15 Order name: LAB Add On sp 02/12 14:18 Order name: Packed RBC Leukored EDMS 02/12 14:41 Order name: ABO/RH no charge; Complete Time: 14:46 EDMS 02/12 16:04 Order name: Test, Serum; Complete Time: 16:36 ld1 02/12 18:04 Order name: Packed RBCs (Additional Unit) EDMS 02/12 13:39 Order name: Transvaginal Study (probe); Complete Time: 15:02 sb4 02/12 14:56 Order name: Pelvis Complete; Complete Time: 15:02 EDMS 02/12 15:53 Order name: Pelvis W/Cont CT; Complete Time: 17:45 sb4 02/12 13:39 Order name: IV Saline Lock; Complete Time: 13:59 sb4 02/12 13:39 Order name: Labs collected and sent; Complete Time: 13:59 sb4 02/12 14:18 Order name: Misc. Order: large lav top no charge; Complete Time: 14:28 sp 02/12 15:03 Order name: Pelvic Exam Setup; Complete Time: 15:32 sb4 Administered Medications: 14:28 Drug: NS 0.9% IV 1000 ml IV at 1 bolus Per protocol; to be given as a bolus over 60 ld1 minutes Route: IV; Rate: 1 bolus; Site: right antecubital; 18:58 Follow up: Response: No adverse reaction; IV Status: Completed infusion; IV Intake: ld1 1000ml 15:32 Drug: tranexamic acid IV 1000 mg IV at calculated rate once; administer at a rate not ld1 to exceed 100 mg per min Route: IV; Rate: calculated rate; Site: right antecubital; 18:58 Follow up: Response: No adverse reaction; IV Status: Completed infusion; IV Intake: ld1 250ml Disposition Summary: 02/12/25 17:50 Transfer Ordered Notes: Transfer Location: [facility] sb4 Reason: Higher level of care sb4 Condition: Fair sb4 Problem: new sb4 Symptoms: are unchanged sb4 Accepting Physician: DR Feliciano(02/12/25 20:23) cp4 Diagnosis - Abnormal uterine and vaginal bleeding, unspecified sb4 - Anemia, unspecified sb4 - Tachycardia, unspecified sb4 Forms: - Medication Reconciliation Form sb4 - SBAR form sb4 Critical care time excluding procedures: 17:52 Critical care time: Bedside Care: 20 minutes, Consultation: 15 minutes. Total time: 35 sb4 minutes Signatures: Dispatcher [employer] EDMS Patty Ram Corey, PA PA cp Baxter, Heather, RN RN Connie Keita RN RN ld1 Jeimy Nice PA-C PALenka sb4 Arianne Will cp4 Corrections: (The following items were deleted from the chart) 13:40 13:40 BASIC METABOLIC PANEL+C.LAB.BRZ ordered. EDMS EDMS 13:40 13:40 CBC+H.LAB.BRZ ordered. EDMS EDMS 13:40 13:40 Urinalysis+U.LAB.BRZ ordered. EDMS EDMS 13:40 13:40 TYPE AND SCREEN+BB.LAB.BRZ ordered. EDMS EDMS 18:05 13:40 Test, Urine+UC.LAB.BRZ ordered. EDMS EDMS 18:47 17:50 urban planning teacher sb4 cp 20:23 18:47 DR Feliciano cp cp4
[2025-02-12 20:51] VITALS: O2SAT 100
[2025-02-12 20:52] VITALS: BP 111/58; TEMP 97.7
== END 2025-02-12 20:23 | disposition short-term general hospital (02) ==
LOC: ER 13:27
PROC: 30233N1 Transfusion of Nonautologous Red Blood Cells into Peripheral Vein, Percutaneous Approach (ICD-10-PCS; principal; 2025-02-12)
DX: D64.9 Anemia, unspecified (principal); R00.0 Tachycardia, unspecified
CPT/HCPCS: 36415; 72193; 76830; 76856; 80048; 84703; 85025; 86850; 86900; 86901; 86920; J7030; J7050; P9016; Q9967

== ENCOUNTER 2025-02-14 16:25 | Emergency (ER) | payer SELFPAY ==
[2025-02-14] MEDS ORDERED: NA CHLORIDE 0.9% 1,000 ML ONE (19:52)
[2025-02-14 20:12] LABS: Absolute Basophils 0.1 K/uL (0-0.5); Absolute Lymphocytes (CBC) 2.2 K/uL (0.7-4.9); Absolute Monocytes 0.4 K/uL (0.1-1.3); Absolute Neutrophil 7.3 K/uL (1.8-8.0); Basophils % 0.9 % (0-1.3); Eosinophils % 0.5 % (0-4.4); Hemoglobin 6.9 g/dL (12.0-15.0); Lymphocytes % 22.1 % (15.3-44.8); MCH 29.4 pg (27.0-35.0); MCHC 34.7 g/dL (32.0-36.0); MCV 84.6 fL (80-100); MPV 8.3 fL (7.6-11.3); Monocytes % 3.8 % (3.3-12.3); Neutrophils % 72.7 % (41.7-73.7); Nucleated Red Blood Cells % 0.1 % (0-0); Platelets 277 thou/uL (152-406); RBC Red Blood Cell Count 2.36 M/uL (3.86-4.86); Red Cell Distribution Width 15.2 % (12.1-15.2)
[2025-02-14 20:15] LABS: Specific Gravity 1.022 (1.005-1.030)
[2025-02-14 20:17] LABS: Specific Gravity 1.022 (1.005-1.030); Sqamous Epithelial None Seen /HPF (None Seen); Urine Bacteria None Seen /HPF (<20); Urine Bilirubin NEGATIVE (Negative); Urine Blood 3+ (OVER) (Negative); Urine Clarity Extremely Turbid (Clear); Urine Color Red (Yellow); Urine Culture Reflex Order REFLEXED; Urine Glucose TRACE (Negative); Urine Ketones NEGATIVE (Negative); Urine Microscopic Reflex YN ORDER UMIC; Urine Mucus 2+ /HPF (None Seen); Urine Nitrite NEGATIVE (Negative); Urine Protein 3+ (Negative); Urine RBC >50 /HPF (None Seen); Urine Urobilinogen Normal (Normal); Urine WBC >50 /HPF (<5); Urine WBC Clump Many /HPF (None Seen); Urine Yeast (Budding) Many /HPF (None Seen); Urine pH 6.5 (5.0-7.0)
[2025-02-14 20:25] LABS: Anion Gap 8.4 mEq/L (5.0-15.0); Potassium 3.4 mEq/L (3.5-5.1)
[2025-02-14] MEDS ORDERED: TRANEXAMIC ACID 1,000 MG/10 ML VIAL IV ONE (21:31)
[2025-02-14] MEDS ORDERED: NA CHLORIDE 0.9% 250 ML ONE (22:19)
--- NOTE | 2025-02-15 00:48 | EDPHYS ---
Physician Documentation [facility] Name: Guera Crooks Age: 34 yrs Sex: Female : 1990 Arrival Date: 02/14/2025 Time: 16:25 Bed 7 Private MD: ED Physician Lester Tesfaye HPI: 02/14 20:48 This 34 yrs old Female presents to ER via Ambulatory with complaints of kb General Weakness, Vaginal Bleeding. 20:48 Patient is a 34-year-old female who presents for vaginal bleeding. [facility] that started kb on Thursday, was seen here on Thursday and transferred to [facility]. [facility] she had 2 units of blood and was discharged the next morning, told to follow-up with [facility]. States they had given her an medicine to slow the bleeding down but she started bleeding heavy again at midnight last night.. Historical: - Allergies: 16:51 No Known Allergies; cm10 - Home Meds: 16:51 None [Active]; cm10 - PMHx: 16:51 None; cm10 - PSHx: 16:51 None; cm10 - Immunization history:: Adult Immunizations up to date. - Infectious Disease History:: Denies. - Social history:: Smoking status: Patient denies any tobacco usage or history of. ROS: 20:48 Constitutional: As per HPI kb Exam: 20:48 Constitutional: This is a well developed, well nourished patient who is awake, alert, kb and in no acute distress. Head/Face: Normocephalic, atraumatic. ENT: Moist Mucous membranes Cardiovascular: Regular rate Respiratory: Respirations even and unlabored. No increased work of breathing. Talking in full sentences Abdomen/GI: Soft, non-tender. No distention Skin: Warm, dry with normal turgor. Normal color. MS/ Extremity: Pulses equal, no cyanosis. Neurovascular intact. Full, normal range of motion. Neuro: Awake and alert, GCS 15, oriented to person, place, time, and situation. 21:04 ECG was reviewed by the Attending Physician. kb 02/15 00:52 Eyes: Periorbital structures: appear normal, Pupils: no acute changes, equal, round, dr5 and reactive to light and accomodation, Extraocular movements: no acute changes, Conjunctiva: normal, Normal color. No pale color appreciated.. Neuro: Exam negative for acute changes, Orientation: is normal, appropriate for stated age, Vital Signs: 02/14 16:49 BP 137 / 73; Pulse 114; Resp 18; Temp 98.6(O); Pulse Ox 100% on R/A; Weight 65.77 kg; cm10 Height 5 ft. 1 in. ; Pain 0/10; 20:21 BP 111 / 67 Supine; Pulse 92; Resp 17; Pulse Ox 100% on R/A; vk 20:21 BP 114 / 63 Sitting; Pulse 105; vk 20:22 BP 106 / 60 Standing; Pulse 118; Pulse Ox 100% on R/A; vk 21:23 BP 112 / 58; Pulse 105; Resp 16 S; Pulse Ox 100% on R/A; kd3 22:49 BP 93 / 59; Pulse 99; Resp 16; Pulse Ox 99% on R/A; kd3 23:50 BP 97 / 58; Pulse 88; Resp 16; Pulse Ox 100% on R/A; kd3 16:49 Body Mass Index 27.40 (65.77 kg, 154.94 cm) cm10 16:49 Pain Scale: Adult cm10 MDM: 16:38 Medical Screening Exam initiated alivia 20:49 Differential diagnosis: Anemia, fibroids, abnormal vaginal bleeding. Data reviewed: kb vital signs, nurses notes. 20:50 Transition of care: After a detail discussion of the patient's case, care is kb transferred to Sukh Padilla [facility]. 02/15 00:52 I considered the following discharge prescriptions or medication management in the [facility] emergency department Medications were administered in the Emergency Department. See MAR. Care significantly affected by the following Social Determinants of Health: Poor access to healthcare and/or lack of insurance, Poor access to transportation, Problems related to employment. Counseling: I had a detailed discussion with the patient and/or guardian regarding the historical points, exam findings, and any diagnostic results supporting the discharge/admit diagnosis, the presence of at least one elevated blood pressure reading (>120/80) during this emergency department visit, lab results, the need for outpatient follow up, for definitive care, an OB/Gyne specialist, to return to the emergency department if symptoms worsen or persist or if there are any questions or concerns that arise at home. ED course: Patient reports her symptoms are resolved and feeling much better. Will have patient call Dr. Gomes of this morning to be seen either today or tomorrow. Strict ER precautions given for continuous heavy bleeding with symptoms of conjunctiva, lightheadedness, dizziness, or any concerning symptoms. 1 unit of blood transfused without reaction. All questions answered and patient ambulated out of ER without issue.. 02/14 16:39 Order name: Type And Screen [facility] 02/14 16:39 Order name: Basic Metabolic Panel; Complete Time: 20:28 [facility] 02/14 16:39 Order name: CBC with Diff; Complete Time: 20:17 [facility] 02/14 16:39 Order name: Test, Urine; Complete Time: 20:16 [facility] 02/14 16:39 Order name: Urinalysis w/ reflexes; Complete Time: 20:21 [facility] 02/14 20:20 Order name: Urine Culture [facility] 02/14 20:55 Order name: Packed RBCs (Additional Unit) [facility] 02/14 16:39 Order name: EKG; Complete Time: 16:40 [facility] 02/14 16:39 Order name: IV Saline Lock; Complete Time: 20:07 [facility] 02/14 16:39 Order name: Labs collected and sent; Complete Time: 20:07 [facility] 02/14 16:39 Order name: NPO; Complete Time: 20:02 [facility] 02/14 16:39 Order name: Orthostatics; Complete Time: 20:21 [facility] 02/14 16:39 Order name: EKG - Nurse/Tech; Complete Time: 20:20 [facility] EC/01 21:04 Rate is 97 beats/min. Rhythm is regular. QRS [place] is Normal. WI interval is normal at kb 132 msec. QRS interval is normal at 80 msec. QT interval is normal at 449 msec. Administered Medications: 20:02 Drug: NS 0.9% IV 1000 ml IV at 1 bolus Per protocol; to be given as a bolus over 60 vc1 minutes Route: IV; Rate: 1 bolus; Site: right antecubital; 21:50 Drug: tranexamic acid IV 1000 mg IV at calculated rate once; administer at a rate not kd3 to exceed 100 mg per min Route: IV; Rate: calculated rate; Site: right antecubital; Disposition Summary: 02/15/25 00:47 Discharge Ordered Notes: Location: Home dr5 Condition: Stable dr5 Diagnosis - Abnormal uterine and vaginal bleeding, unspecified dr5 Followup: dr5 - With: Emergency Department - When: As needed - Reason: Worsening of condition Followup: dr5 - With: Private Physician - When: Tomorrow - Reason: Recheck today's complaints, Continuance of care, Re-evaluation by your physician Followup: dr5 - With: Shayy Gomes MD - When: Tomorrow - Reason: Recheck today's complaints, Continuance of care, Re-evaluation by your physician Discharge Instructions: - Discharge Summary Sheet dr5 - Abnormal Uterine Bleeding dr5 - Blood Transfusion, Adult dr5 Forms: - Medication Reconciliation Form dr5 - Patient Portal Instructions dr5 - Leadership Thank You Letter dr5 Critical care time excluding procedures: 21:05 Critical care time: Bedside Care: 10 minutes, Consultation: 10 minutes, Family kb Intervention: 10 minutes. Total time: 30 minutes Signatures: Dispatcher [employer] EDFreda Monzon, PIG IRON LOADER-C PIG IRON LOADER-Ckb Lester Tesfaye MD MD cha Doucette, Kyli, RN RN kd3 Katey Torres RN RN vc1 Diallo Coelho MD MD rt Martinez, Clarissa, RN RN cm10 Sukh Padilla, PIG IRON LOADER-C PIG IRON LOADER-Cdr5 Corrections: (The following items were deleted from the chart) 17:25 16:40 Transvaginal Study (Probe)+US.RAD.BRZ ordered. EDMS EDMS 20:31 16:40 ABO/RH TYPING+BB.LAB.BRZ ordered. EDMS EDMS
--- NOTE | 2025-02-15 00:48 | ER ---
Nurse's Notes [facility] Name: Guera Crooks Age: 34 yrs Sex: Female : 1990 Arrival Date: 02/14/2025 Time: 16:25 Bed 7 Private MD: Diagnosis: Abnormal uterine and vaginal bleeding, unspecified Presentation: 02/14 16:49 Chief complaint: Patient states: Discharged from [facility] yesterday and cm10 today started feeling weak and increased vaginal bleeding. Pt was seen here on Thursday and transferred due to having vaginal bleeding. Pt received 2 units of blood in the ER on Thursday. Pt reports changing pad every 1.5hrs since 399. Coronavirus screen: Client denies travel out of the [place] in the last 14 days. Ebola Screen: Patient denies travel to an Ebola-affected area in the 21 days before illness onset. Initial Sepsis Screen: Does the patient meet any 2 criteria? HR > 90 bpm. Does the patient have a suspected source of infection? No. Patient's initial sepsis screen is negative. Risk Assessment: Do you want to hurt yourself or someone else? Patient reports no desire to harm self or others. Onset of symptoms was February 14, 2025. 16:49 Method Of Arrival: Ambulatory cm10 16:49 Acuity: JULIETH 3 cm10 Triage Assessment: 16:52 General: Appears uncomfortable, Behavior is calm, cooperative. Pain: Denies pain. cm10 Neuro: No deficits noted. Level of Consciousness is awake, alert, obeys commands, Oriented to person, place, time, situation, Appropriate for age. Respiratory: No deficits noted. Airway is patent Respiratory effort is even, unlabored, Respiratory pattern is regular, symmetrical. : Reports vaginal bleeding that is bright red, with clots, heavy flow. Historical: - Allergies: 16:51 No Known Allergies; cm10 - Home Meds: 16:51 None [Active]; cm10 - PMHx: 16:51 None; cm10 - PSHx: 16:51 None; cm10 - Immunization history:: Adult Immunizations up to date. - Infectious Disease History:: Denies. - Social history:: Smoking status: Patient denies any tobacco usage or history of. Screenin:41 [facility] ED Fall Risk Assessment (Adult) History of falling in the last 3 months, dd2 including since admission No falls in past 3 months (0 pts) Confusion or Disorientation No (0 pts) Intoxicated or Sedated No (0 pts) Impaired Gait No (0 pts) Mobility Assist Device Used Yes (1 pt) Altered Elimination No (0 pt) Score/Fall Risk Level 0 - 2 = Low Risk Oriented to surroundings, Maintained a safe environment, Educated pt \T\ family on fall prevention, incl call for assistance when getting out of bed, Assessed \T\ reinforced patient's understanding of fall precautions, Provided non-skid footwear, Hourly rounding (assess needs \T\ fall precautionary measures) done. Abuse screen: Denies threats or abuse. Denies injuries from another. Nutritional screening: No deficits noted. Tuberculosis screening: No symptoms or risk factors identified. Assessment: 20:41 Reassessment: RECEIVED PT TO ROOM ER 7. dd2 21:23 General: Appears in no apparent distress. Behavior is calm, cooperative. Pain: Denies kd3 pain. Neuro: Level of Consciousness is awake, alert, obeys commands, Oriented to person, place, time, situation. Cardiovascular: Patient's skin is warm and dry. Respiratory: Airway is patent Trachea midline Respiratory effort is even, unlabored, Respiratory pattern is regular, symmetrical. 02/15 01:01 General: blood transfusion complete at 0047. VSS. no adverse reaction. See paper kd3 charting for vital signs. Pt discharged. . Vital Signs: 02/14 16:49 BP 137 / 73; Pulse 114; Resp 18; Temp 98.6(O); Pulse Ox 100% on R/A; Weight 65.77 kg; cm10 Height 5 ft. 1 in. ; Pain 0/10; 20:21 BP 111 / 67 Supine; Pulse 92; Resp 17; Pulse Ox 100% on R/A; vk 20:21 BP 114 / 63 Sitting; Pulse 105; vk 20:22 BP 106 / 60 Standing; Pulse 118; Pulse Ox 100% on R/A; vk 21:23 BP 112 / 58; Pulse 105; Resp 16 S; Pulse Ox 100% on R/A; kd3 22:49 BP 93 / 59; Pulse 99; Resp 16; Pulse Ox 99% on R/A; kd3 23:50 BP 97 / 58; Pulse 88; Resp 16; Pulse Ox 100% on R/A; kd3 16:49 Body Mass Index 27.40 (65.77 kg, 154.94 cm) cm10 16:49 Pain Scale: Adult cm10 ED Course: 16:27 Patient arrived in ED. im 16:38 Lester Tesfaye MD is Attending Physician. [facility] [place] [facility] 16:51 Triage completed. cm10 16:52 Arm band placed on right wrist. Patient placed in waiting room. cm10 20:02 Katey Torres, RN is Primary Nurse. vc1 20:07 Freda Almodovar FNP-C is PHCP. kb 20:07 Type And Screen Sent. vk 20:07 Basic Metabolic Panel Sent. vk 20:07 CBC with Diff Sent. vk 20:07 Urinalysis w/ reflexes Sent. vk 20:07 Test, Urine Sent. vk 20:07 Initial lab(s) drawn, by ms, sent to lab. Urine collected: clean catch specimen, blood vk tinged. Inserted saline lock: 20 gauge in right antecubital area, using aseptic technique. Blood collected. Flushed with 10 mL NS. 20:21 Type And Screen Sent. vk 20:21 T\T\S collected, blood band applied to patient. vk 20:41 Patient has correct armband on for positive identification. Bed in low position. Call dd2 light in reach. Side rails up X2. Client placed on continuous cardiac and pulse oximetry monitoring. NIBP monitoring applied. cyber systems operations specialist on. Door closed. Noise minimized. Warm blanket given. Pillow given. Verbal reassurance given. 20:41 Patient maintains SpO2 saturation greater than 95% on room air. dd2 21:06 PHCP role handed off by Freda Almodovar FNP-C kb 21:06 Sukh Padilla FNP-C is PHCP. kb 04 00:47 Shayy Gomes MD is Referral Physician. dr5 01:02 Provided Education on: need for follow up . kd3 01:02 No provider procedures requiring assistance completed. IV discontinued, intact, kd3 bleeding controlled, No redness/swelling at site. Pressure dressing applied. Administered Medications: 02/14 20:02 Drug: NS 0.9% IV 1000 ml IV at 1 bolus Per protocol; to be given as a bolus over 60 vc1 minutes Route: IV; Rate: 1 bolus; Site: right antecubital; 21:50 Drug: tranexamic acid IV 1000 mg IV at calculated rate once; administer at a rate not kd3 to exceed 100 mg per min Route: IV; Rate: calculated rate; Site: right antecubital; Medication: 02/15 01:02 VIS not applicable for this client. kd3 Outcome: 00:47 Discharge ordered by . dr5 01:02 Discharged to home ambulatory, kd3 01:02 Condition: stable 01:02 Discharge instructions given to patient, Instructed on discharge instructions, follow up and referral plans. Demonstrated understanding of instructions, follow-up care, 01:02 Patient left the ED. kd3 Signatures: Freda Almodovar, SALES EXPERT-C SALES EXPERT-Ckb Lester Tesfaye MD MD cha Doucette, Kyli, RN RN kd3 Katey Torres RN RN vc1 Lorri Tabares Clarissa, RN RN cm10 Julieth Booth DIANA, RN RN dd2 Sukh Padilla, SALES EXPERT-C SALES EXPERT-Cdr5 Corrections: (The following items were deleted from the chart) 02/14 16:53 16:49 Chief complaint: Patient states: Discharged from [facility] yesterday cm10 and today started feeling weak and increased vaginal bleeding. Pt was seen here on Thursday and transferred due to having vaginal bleeding. Pt received 2 units of blood in the ER on thursday. cm10 20:31 20:07 ABO/RH TYPING+BB.LAB.ERROL drawn and sent. EDWV
[2025-02-15 01:44] VITALS: TEMP 98.6
[2025-02-15 01:50] VITALS: BP 97/58; O2SAT 100
== END 2025-02-15 01:02 | disposition home or self-care (01) ==
LOC: ER 16:25
PROC: 30233N1 Transfusion of Nonautologous Red Blood Cells into Peripheral Vein, Percutaneous Approach (ICD-10-PCS; principal; 2025-02-15)
DX: N93.9 Abnormal uterine and vaginal bleeding, unspecified (principal)
CPT/HCPCS: 36415; 80048; 81001; 81025; 85025; 86850; 86900; 86901; 86920; 87086; 87088; 93005; J7030; J7050; P9016